=== PATIENT | male | born 1975 | race Caucasian/White ===

== ENCOUNTER 2016-11-16 18:39 | Emergency (ER) | payer OTHER ==
[~2016-11-16] VITALS: Ht 190.5 cm; Wt 101.8 kg
[2016-11-16] MEDS ORDERED: AUGMENTIN 875 MG TAB PO ONE (22:00)
[2016-11-16] MEDS ORDERED: ADACEL/BOOSTRIX VACCINE (DIPHTH/PERTUSS/ACELL/TETANUS)0.5ML SYR (90715) IM ONE (22:00)
[2016-11-16] MEDS ORDERED: AUGM875T28 PO (22:42)
[2016-11-16 22:47] VITALS: BP 137/66
--- NOTE | 2016-11-17 07:53 | REP ---
Right hand four views : There is no fracture or dislocation. Mineralization and joint spaces are normal. There are no calcifications or foreign bodies. Impression: Negative right hand . Signed by Ayden Stovall MD 11/17/2016 07:44 A
[2016-11-17] MEDS ORDERED: ADVI200T PO (14:15)
== END 2016-11-16 22:49 | disposition home or self-care (01) ==
LOC: M ED 18:39
DX: S61.256A Open bite of right little finger without damage to nail, initial encounter (principal); Z87.891 Personal history of nicotine dependence; W55.01XA Bitten by cat, initial encounter; Y92.89 Other specified places as the place of occurrence of the external cause; Y93.89 Activity, other specified; Y99.9 Unspecified external cause status

== ENCOUNTER 2016-11-17 14:06 | Emergency (ER) | payer OTHER ==
[~2016-11-17] VITALS: Ht 190.5 cm; Wt 102.3 kg
[~2016-11-17 14:06] MED LIST: AUGM875T28 PO
[2016-11-17] MEDS ORDERED: ADVI200T PO (14:15)
[2016-11-17] MEDS ORDERED: NS 1,000 ML IV ONE (15:15)
[2016-11-17] MEDS ORDERED: AMPICILLIN SOD/SULBACTAM SOD 3 GM in D5W MINI-BAG PLUS 100 ML IV ONE (15:15)
[2016-11-17 16:11] LABS: BASO # 0.1 K/mm3 (0.0-0.2); BASO % 0.6 % (0.0-1.0); EOS # 0.5 K/mm3 (0.0-0.50); EOS % 3.7 % (0.0-3.0); LARGE UNSTAINED CELL # 0.1 K/mm3 (0.0-0.4); LARGE UNSTAINED CELL % 0.9 % (0.0-4.0); LYMPH % 14.5 % (24.0-44.0); MEAN CORPUSCULAR HEMOGLOBIN 31.9 pg (27.0-33.0); MEAN CORPUSCULAR VOLUME 93.8 fl (80.0-96.0); MONO # 0.6 K/mm3 (0.0-0.8); MONO % 4.5 % (0.0-5.0); NEUTROPHILS # 9.7 K/mm3 (1.8-7.7); NEUTROPHILS % 75.9 % (36.0-66.0); PLATELET COUNT, AUTOMATED 233 k/mm3 (150-450); RED CELL DISTRIBUTION WIDTH 13.3 % (11.5-14.5); WHITE BLOOD COUNT 12.8 K/mm3 (4.0-10.0)
[2016-11-17 17:08] LABS: ANION GAP 8 MEQ/L (8-16); BLOOD UREA NITROGEN 25 MG/DL (7-18); CARBON DIOXIDE LEVEL 27 MEQ/L (21-32); CHLORIDE LEVEL 106 MEQ/L (98-107); CREATININE FOR GFR 1.29 MG/DL (0.70-1.30); GLOMERULAR FILTRATION RATE > 60.0 (>60); GLUCOSE, FASTING 100 MG/DL (70-105); POTASSIUM SERUM 4.1 MEQ/L (3.5-5.1); SODIUM LEVEL 141 MEQ/L (136-145)
[2016-11-17 18:03] VITALS: BP 116/75
== END 2016-11-17 18:04 | disposition home or self-care (01) ==
LOC: M ED 14:06
DX: L03.011 Cellulitis of right finger (principal); L03.021 Acute lymphangitis of right finger

== ENCOUNTER → 2019-11-22 | Outpatient (CLI) | payer OTHER ==
[~2019-11-22] MED LIST changes: +ADVI200T PO
== END ==
LOC: M LABSMTC 11:30
PROVIDERS: ATTEND Pediatrics
DX: Z03.818 Encounter for observation for suspected exposure to other biological agents ruled out (principal); Z11.59 Encounter for screening for other viral diseases

== ENCOUNTER → 2019-11-27 | Outpatient (CLI) | payer OTHER ==
--- NOTE | 2019-12-21 14:37 | PFTRPT ---
Visit Date: 11/27/2019 Second ID: [id number] Referring Doctor: MAIRA LOPEZ Height: 75.00 Inches Weight: 235.00 Lbs BSA: 2.35 Diagnosis: WHEEZING TECHNIQUE: Pre- and post-bronchodilator study of excellent technical quality. FINDINGS: Forced vital capacity is normal. FEV1 is borderline in proportion with obstructive index which is borderline as well. Expiratory limit within the flow-volume loop does suggest nonspecific limitation. No significant bronchodilator response identified. Total lung capacity normal. Residual volume is borderline for air trapping. Diffusing capacity is normal. No hemoglobin available for correction. Airway resistance and conductance are normal. IMPRESSION: Suspect at least a mild obstructive ventilatory impairment with only borderline bronchodilator response. Please correlate clinically. MTDD
--- NOTE | 2019-12-22 14:32 | PULFX ---
ORDERED BY: Maicol ? Pre and post bronchial tests have excellent technical quality. Forced vital capacity normal. FEV-1 borderline in proportion. index borderline as well. The flow volume loop does suggest only minimal bronchodilator response, however. Total capacity normal. Residual volume is proportionate. Diffusion capacity normal. No hemoglobin available for correction. Airway resistance and conductance are normal. IMPRESSION: Mild obstructive ventilatory impairment with only borderline bronchodilator response. Please correlate clinically MTDD
== END ==
LOC: M CARPUL 09:20
PROVIDERS: ATTEND Physician Assistant
DX: Z02.89 Encounter for other administrative examinations (principal)

== ENCOUNTER → 2020-11-20 | Outpatient (CLI) | payer OTHER ==
--- NOTE | 2020-11-21 07:28 | PFTRPT ---
Site: [facility], [address] [place] [address], [id number] ID: [id number] Name: ANTOINETTE CHOUDHARY Visit Date: 11/20/2020 Second ID: [id number] Referring Doctor: MAIRA LOPEZ Reviewing Doctor: Angelo Marcus MD Student Success Coach: Juan CARDENAS RRT Age: 44 : 1975 Sex: Male Race: Height: 75.00 Inches Weight: 245.00 Lbs BSA: 2.39 Order IDs: [id number] Requested Test(s): <RESP-PFT.PFT B/A> Diagnosis: J44.9 test appear to be valid, although the ATS standard for "end of test" was not met. Pt was given four puffs of albuterol for post bronchodilator. Review Status: Not Reviewed Pre-Bronch Post-Bronch Pred Actual %Pred Actual %Chng SPIROMETRY FVC (L) 6.03 5.99 99 6.04 FEV1 (L) 4.71 4.16 88 4.52 8 FEV1/FVC (%) 79 70 88 75 7 FEF 25% (L/sec) 8.84 6.27 70 7.19 14 FEF 50% (L/sec) 5.29 3.52 66 4.38 24 FEF 75% (L/sec) 1.97 1.26 64 1.70 34 FEF 25-75% (L/sec) 4.16 2.85 68 3.63 27 FEF Max (L/sec) 11.16 10.29 92 10.94 6 FIVC (L) 5.80 5.75 FIF 50% (L/sec) 5.08 9.16 180 10.04 9 FIF Max (L/sec) 9.41 11.51 22 MVV (L/min) 175 168 96 Expiratory Time (sec) 8.26 5.08 -38 Back Extrap Vol (L) 0.11 0.11 -1 Time To FEFmax (sec) 0.066 0.060 -9 LUNG VOLUMES SVC (L) 5.73 6.15 107 IC (L) 3.84 4.70 122 ERV (L) 1.89 1.44 76 TGV (L) 4.12 3.69 89 RV (Pleth) (L) 2.23 2.25 100 TLC (Pleth) (L) 7.96 8.40 105 RV/TLC (Pleth) (%) 28 27 95 DIFFUSION DLCOunc (ml/min/mmHg) 33.73 28.84 85 DLCOcor (ml/min/mmHg) 33.73 28.60 84 DL/VA (ml/min/mmHg/L) 4.24 3.42 80 VA (L) 7.96 8.35 104 BHT (sec) 9.81 IVC (L) 6.14 TLC (SB) (L) 8.50 AIRWAYS RESISTANCE Raw (cmH2O/L/s) 1.45 0.67 46 Gaw (L/s/cmH2O) 1.03 1.53 148 sRaw (cmH2O*s) 4.76 2.57 54 sGaw (1/cmH2O*s) 0.20 0.40 198 BLOOD GASES Hgb (gm/dL) 14.9
== END ==
LOC: M CARPUL 13:57
PROVIDERS: ATTEND Physician Assistant
DX: J44.9 Chronic obstructive pulmonary disease, unspecified (principal)

== ENCOUNTER → 2020-12-12 | Outpatient (CLI) | payer OTHER ==
--- NOTE | 2020-12-23 10:32 | REP ---
INDICATION: NONSPECIFIC ABNORMAL FINDING OF LUNG FIELD COMPARISON: Outside examination dated 08/22/2018 TECHNIQUE: Axial noncontrast images from the thoracic inlet to the upper abdomen with coronal and sagittal reformations. This CT examination was performed using the following dose reduction techniques: Automated exposure control, adjustment of mA and/or kv according to the patient's size, and use of iterative reconstruction technique. FINDINGS: The lung moss are relatively well aerated, essentially symmetric and clear. No acute consolidation or effusion. Very minimal stable chronic changes include essentially subcentimeter apical scarring and small bullae as well as few scattered small noncalcified nodular densities including 3 mm and 4 mm densities in the apical left lower lobe (image 34, 65). No significant acute nodule or mass lesion. No pneumothorax. Tracheobronchial tree is patent. No axillary, hilar, or mediastinal adenopathy. Mediastinum demonstrates relatively normal thoracic aorta, pulmonary vasculature, and heart/pericardium. Surrounding musculoskeletal structures are intact and without acute osseous abnormality. Limited upper abdomen demonstrates normal bilateral adrenal glands. IMPRESSION: Very minimal stable chronic changes. No acute mediastinal or pleuroparenchymal process appreciated. <Electronically signed by Mynor Epps > 12/23/20 1025
== END ==
LOC: M RAD 12:30
PROVIDERS: ATTEND Physician Assistant
DX: R91.8 Other nonspecific abnormal finding of lung field (principal)

== ENCOUNTER 2022-12-18 23:58 | Emergency (ER) | payer OTHER ==
[~2022-12-18] VITALS: Ht 190.5 cm; Wt 121.9 kg
[2022-12-19 00:38] LABS: HEMOGLOBIN 14.2 g/dl (13.5-17.5); MEAN CORPUSCULAR HEMOGLOBIN 30.6 pg (27.0-33.0); MEAN CORPUSCULAR HGB CONC 34.6 g/dl (32.0-36.5); MEAN CORPUSCULAR VOLUME 88.4 fl (80.0-96.0); PLATELET COUNT, AUTOMATED 245 10^3/uL (150-450); RED BLOOD COUNT 4.64 10^6/uL (4.30-6.10); WHITE BLOOD COUNT 12.1 10^3/uL (4.0-10.0)
[2022-12-19 00:56] LABS: CK-MB VALUE MASS 1.2 NG/ML (<3.6)
[2022-12-19 00:58] LABS: CPK CREATINE PHOSPHOKINASE 123 U/L (46-171); MB/CK RELATIVE INDEX 0.97 (< OR =4)
[2022-12-19 01:29] LABS: ATYPICAL LYMPH 37 % (0-5); BASOPHILS 2 % (0-1); EOSINOPHILS 6 % (0-3); LYMPHOCYTES 28 % (16-44); MONOCYTES 7 % (0-5); NEUTROPHILS 19 % (28-66); PLATELET ESTIMATE NORMAL (NORMAL)
[2022-12-19 01:50] LABS: LIPASE 24 U/L (12-53)
[2022-12-19 02:01] LABS: ALBUMIN 3.7 G/DL (3.2-5.2); ALKALINE PHOSPHATASE 70 U/L (46-116); ALT/SGPT 39 U/L (7.0-40); AST/SGOT 20 U/L (<34); BILIRUBIN,DIRECT 0.2 MG/DL (<0.4); BILIRUBIN,TOTAL 0.5 MG/DL (0.3-1.2); BLOOD UREA NITROGEN 23 MG/DL (9-23); CALCIUM LEVEL 9.2 MG/DL (8.5-10.1); CARBON DIOXIDE LEVEL 24 MMOL/L (20-31); CHLORIDE LEVEL 107 MMOL/L (98-107); CREATININE FOR GFR 1.22 MG/DL (0.70-1.30); GLOMERULAR FILTRATION RATE > 60.0 (>60); GLUCOSE, FASTING 108 MG/DL (60-100); POTASSIUM SERUM 3.8 MMOL/L (3.5-5.1); SODIUM LEVEL 139 MMOL/L (136-145); THYROID STIMULATING HORMONE 3.454 uIU/ML (0.55-4.78); TOTAL PROTEIN 7.2 G/DL (5.7-8.2)
[2022-12-19 02:31] LABS: CK-MB VALUE MASS < 1.0 NG/ML (<3.6); CPK CREATINE PHOSPHOKINASE 130 U/L (46-171); MB/CK RELATIVE INDEX 0.76 (< OR =4)
[2022-12-19] MEDS ORDERED: ASPI81TA26 PO (03:35)
[2022-12-19 03:45] VITALS: BP 139/84; TEMP 96; O2SAT 99
== END 2022-12-19 03:46 | disposition home or self-care (01) ==
LOC: M ED 23:58
DX: I48.91 Unspecified atrial fibrillation (principal); R00.1 Bradycardia, unspecified; I44.0 Atrioventricular block, first degree; I45.10 Unspecified right bundle-branch block; Z79.2 Long term (current) use of antibiotics; Z79.82 Long term (current) use of aspirin; Z79.1 Long term (current) use of non-steroidal anti-inflammatories (NSAID)